=== PATIENT | male | born 1995 | race Caucasian/White ===

== ENCOUNTER 2017-04-27 01:07 | Emergency (ER) | payer BC, OTHER ==
[2017-04-27 01:22] VITALS: TEMP 36.7
[2017-04-27 01:47] LABS: BLOOD UREA NITROGEN 13 mg/dl (7-18); CALCIUM 9.5 mg/dl (8.5-10.1); CARBON DIOXIDE 26 mmol/L (21-32); CREATININE 1.03 mg/dl (0.60-1.40); GLUCOSE 146 mg/dl (70-99); POTASSIUM 3.3 mmol/L (3.5-5.1); SODIUM 138 mmol/L (136-145)
[2017-04-27 04:30] VITALS: BP 128/52
[2017-04-27 05:24] VITALS: PULSE 97; O2SAT 98
--- NOTE | 2017-04-27 08:07 | EMERGENCY ROOM VISIT NOTE ---
History Report prepared by Prasanth: Ashtyn Huizar Under the Supervision of: Dr. Annalisa Urrutia D.O. First contact with patient: 01:06 Chief Complaint: ALCOHOL OVERDOSE Stated Complaint: ALCOHOL OVERDOSE History of Present Illness The patient is a 22 year old male who presents to the Emergency Room with complaints of an episode of alcohol overdose occurring prior to arrival. 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 He states that he stumbled out in front of a police car and they bought him here. He notes denies hitting his head and having anything besides alcohol. The patient denies abdominal pain. The patient notes that he has been here before for the same thing. Source of History: patient Onset: prior to arrival Position: other (global) Quality: other (intoxication) Timing: other (episode) Associated Symptoms: No abdominal pain Review of Systems See HPI for pertinent positives & negatives. A total of 10 systems reviewed and were otherwise negative. Past Medical & Surgical Medical Problems: (1) No Known Active Medical Problems Family History No pertinent family history Social History Alcohol Use: heavy Marital Status: single Housing Status: lives with roommate Occupation Status: [employer] student Current/Historical Medications No Active Prescriptions or Reported Meds Allergies Coded Allergies: No Known Allergies (Unverified , 04/27/17) Physical Exam Vital Signs Date Time Temp Pulse Resp B/P (MAP) Pulse Ox O2 Delivery O2 Flow Rate FiO2 04/27/17 05:24 97 18 98 04/27/17 04:30 110 16 128/52 95 04/27/17 04:00 81 19 111/51 92 Room Air 04/27/17 03:30 98 23 129/53 92 Room Air 04/27/17 02:13 110 18 161/82 99 Room Air 04/27/17 01:22 36.7 116 20 144/82 97 Room Air 04/27/17 01:19 128 Physical Exam General: Slurred speech and smells of alcohol. HEENT: Head - normocephalic and atraumatic Pupils are 2 mm and sluggishly reactive to light. Extraocular eye muscles are intact, and sclera are anicteric. Nose - moist nasal mucosa without discharge. Mouth - moist buccal mucosa. Oropharynx is nonerythematous and there is no tonsillar exudate or edema noted. Neck: Supple; no JVD, nuchal rigidity, cervical lymphadenopathy. Heart: Tachycardic rate and regular rhythm. There is a normal S1 and S2 with no murmurs, clicks, or gallops appreciated. Lungs: Clear to auscultation bilaterally with no wheezes, rales, or rhonchi. Abdomen: Soft, completely nontender, nondistended, with good bowel sounds. There are no palpable pulsatile masses or hepatosplenomegaly. There is no guarding, rigidity, or rebound noted. Extremities: No evidence of cyanosis, clubbing, or edema. There are easily palpable peripheral pulses. Skin: warm and dry with good turgor and no rashes. Medical Decision & Procedures Laboratory Results 04/27/17 01:21 Test 04/27/17 01:21 Anion Gap 10.0 mmol/L (3-11) Estimated GFR () 120.6 Estimated GFR (Non- 104.1 BUN/Creatinine Ratio 13.0 (10-20) Calcium Level 9.5 mg/dl (8.5-10.1) Ethyl Alcohol mg/dL 353.0 mg/dl (0-3) Laboratory results per my review. ED Course 0108: Past medical records reviewed. The patient was evaluated in room B11B. A complete history and physical exam was performed. The patient was placed in the prone position to avoid aspiration. He was observed on the senior ui web developer and pulse oximeter. Labs were drawn as above. 0210: I had a conversation with the patient and his friend who is at bed side. The friend is sober, but the patient's alcohol is still high, so he is going to have to sober up some. 0408: I reevaluated the patient. He is sleeping and his vitals are stable. 0451: Upon reevaluation, the patient is doing well. The friend is going to watch over him. I discussed findings and results with him. He verbalized agreement of the treatment plan. The patient was discharged home. Medical Decision The patient is a 22 year old male who presents to the Emergency Room with complaints of an episode of alcohol overdose occurring prior to arrival. Differential diagnoses include alcohol overdose, drug intoxication, hypoglycemia , head injury. LABS: Glucose 146 Normal renal function Alcohol 353 This is a 22-year-old male patient is brought to the emergency department after consuming too much alcohol. He was cooperative throughout his stay here in the ER. He had a sober friend at the bedside throughout his stay. Once the patient was able to get up and walk unassisted and seem more coherent, he was discharged to home with a sober friend. Medication Reconcilliation Current Medication List: was personally reviewed by me Blood Pressure Screening Patient's blood pressure: Normal blood pressure Blood pressure disposition: Did not require urgent referral Impression Primary Impression: Alcohol overdose Scribe Attestation The scribe's documentation has been prepared under my direction and personally reviewed by me in its entirety. I confirm that the note above accurately reflects all work, treatment, procedures, and medical decision making performed by me. Departure Information Dispostion Home / Self-Care Prescriptions No Active Prescriptions or Reported Meds Forms HOME CARE DOCUMENTATION FORM, IMPORTANT VISIT INFORMATION Patient Instructions My [facility] Additional Instructions Rest. take plenty of clear liquids and a bland diet. Avoid such excessive alcohol use in the future Use tylenol for headache Problem Qualifiers Primary Impression: Alcohol overdose Encounter type: initial encounter Injury intent: accidental or unintentional Qualified Codes: T51.91XA - Toxic effect of unspecified alcohol , accidental (unintentional), initial encounter
== END 2017-04-27 05:24 | disposition home or self-care (01) ==
LOC: EDBD 01:07 → C.EDB 01:09
DX: T51.0X1A Toxic effect of ethanol, accidental (unintentional), initial encounter (principal)